=== PATIENT | female | born 1980 ===

== ENCOUNTER 2017-04-05 07:10 | Day surgery (SDC) | payer OTHER ==
[2017-04-05 07:52] VITALS: BMI 20.1
[2017-04-05] MEDS ORDERED: Lactated Ringer's 500 ML IV ONE (08:00)
[2017-04-05] MEDS ORDERED: Propofol 10 mg/ml Inj (20 ML) ONE (08:45)
[2017-04-05 09:16] VITALS: TEMP 97
[2017-04-05 09:53] VITALS: BP 110/70; PULSE 60; RESP 14; O2SAT 100
== END 2017-04-05 09:51 | disposition home or self-care (01) ==
LOC: H.ENDO 07:10
PROVIDERS: ATTEND Internal Medicine Gastroenterology
DX: R19.7 Diarrhea, unspecified (principal); K52.9 Noninfective gastroenteritis and colitis, unspecified; K64.0 First degree hemorrhoids; K58.9 Irritable bowel syndrome, unspecified
CPT/HCPCS: 45380; 88305; J2704; J7120

== ENCOUNTER 2018-08-14 12:52 | Emergency (ER) | payer OTHER ==
[2018-08-14 12:53] VITALS: BMI 20.1
[2018-08-14 13:04] VITALS: O2SAT 100
[2018-08-14] MEDS ORDERED: Sodium Chloride 0.9% 1,000 ML IV STA (13:05)
[2018-08-14 13:47] LABS: BASO % 0.2 % (0.0-2.0); EOS # 0.1 K/uL (0.0-0.7); EOS % 0.4 % (0.0-4.0); HEMOGLOBIN 13.9 g/dL (12.0-16.0); LYMPH # 0.3 K/uL (1.0-4.3); MEAN CORPUSCULAR HEMOGLOBIN 26.9 pg (27.0-31.0); MEAN CORPUSCULAR HGB CONC 32.8 g/dL (33.0-37.0); MEAN PLATELET VOLUME 7.6 fl (7.2-11.7); MONO # 0.5 K/uL (0.0-0.8); MONO % 3.1 % (0.0-10.0); NEUT # 15.3 K/uL (1.8-7.0); NEUT % 94.3 % (50.0-75.0); PLATELET COUNT 341 K/uL (130-400); RBC 5.19 Mil/uL (3.80-5.20); RED CELL DISTRIBUTION WIDTH 14.5 % (11.5-14.5); WHITE BLOOD COUNT 16.2 K/uL (4.8-10.8)
[2018-08-14 14:01] LABS: ALB/GLOB RATIO 1.1 (1.0-2.1); ALBUMIN 4.6 g/dL (3.5-5.0); ALT/SGPT 25 U/L (9-52); AST/SGOT 28 U/L (14-36); BLOOD UREA NITROGEN 17 mg/dl (7-17); GFR NON-AFRICAN AMERICAN > 60
--- NOTE | 2018-08-14 14:02 | ED PDOC ---
HPI:Nausea, Vomiting, Diarrhea Time Seen by Provider: 08/14/18 13:05 Chief Complaint (Nursing): GI Problem Chief Complaint (Provider): GI Problem History Per: Patient History/Exam Limitations: no limitations Onset/Duration Of Symptoms: Days (x1) Current Symptoms Are (Timing): Still Present Additional Complaint(s): 38 year old female presents to ED with acute onset of nausea, vomiting, diarrhea, and mild upper abdominal discomfort since 0700 earlier today. Patient admits to ingesting raw oysters yesterday but denies any other focal abdominal pain, recent sick contacts, fever, chills, headache, bloody vomitus or stools. Patient has Hx significantly for salmonella 1 month ago and has completed full course of ABX and received typhoid vaccine. 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 PCP: Dr. Marily Jenkins Past Medical History Reviewed: Historical Data, Nursing Documentation, Vital Signs Vital Signs: Last Vital Signs Temp 97 F L 08/14/18 13:02 Pulse 92 H 08/14/18 13:02 Resp 18 08/14/18 13:02 BP 103/72 08/14/18 13:02 Pulse Ox 100 08/14/18 13:02 - Medical History PMH: No Chronic Diseases Denies: Chronic Kidney Disease - Surgical History Surgical History: Denies: No Surg Hx Other surgeries: jaw and hand - Family History Family History: States: Unknown Family Hx - Home Medications Home Medications: Ambulatory Orders Medication Instructions Recorded Levonorgestrel-Ethin Estradiol 1 tab PO DAILY 04/05/17 [Levora-28 30 Mcg-0.15 mg] Ondansetron ODT [Zofran ODT] 4 mg PO Q6 PRN #10 odt 08/14/18 Ranitidine HCl [Zantac] 150 mg PO BID #20 tablet 08/14/18 - Allergies Allergies/Adverse Reactions: Allergies Allergy/AdvReac Type Severity Reaction Status Date / Time No Known Allergies Allergy Verified 04/05/17 07:52 Review of Systems ROS Statement: Except As Marked, All Systems Reviewed And Found Negative Constitutional: Negative for: Fever, Chills Gastrointestinal: Positive for: Nausea, Vomiting, Abdominal Pain (epigastric d iscomfort), Diarrhea. Negative for: Hematochezia, Hematemesis Neurological: Negative for: Headache Physical Exam - Reviewed Nursing Documentation Reviewed: Yes Vital Signs Reviewed: Yes - Physical Exam Appears: Positive for: No Acute Distress Head Exam: Positive for: ATRAUMATIC, NORMAL INSPECTION, NORMOCEPHALIC Skin: Positive for: Normal Color Eye Exam: Positive for: Normal appearance, EOMI, PERRL. Negative for: Scleral icterus ENT: Positive for: Normal ENT Inspection. Negative for: Pharyngeal Erythema Neck: Positive for: Normal Cardiovascular/Chest: Positive for: Regular Rate, Rhythm, Chest Non Tender Respiratory: Positive for: Normal Breath Sounds. Negative for: Respiratory Distress Gastrointestinal/Abdominal: Positive for: Normal Exam, Soft. Negative for: Tenderness (LLQ or LRQ), Guarding, Rebound Back: Positive for: Normal Inspection. Negative for: L CVA Tenderness, R CVA Tenderness Extremity: Positive for: Normal ROM (upper/lower) Neurologic/Psych: Positive for: Alert, Oriented. Negative for: Motor/Sensory Deficits - Laboratory Results Result Diagrams: 08/14/18 18:13 08/14/18 13:41 Lab Results: Total Bilirubin 1.0 mg/dl (0.2-1.3) 08/14/18 13:41 AST 28 U/L (14-36) 08/14/18 13:41 ALT 25 U/L (9-52) 08/14/18 13:41 Alkaline Phosphatase 55 U/L (38-126) 08/14/18 13:41 Total Protein 8.8 G/DL (6.3-8.2) H 08/14/18 13:41 Albumin 4.6 g/dL (3.5-5.0) 08/14/18 13:41 Globulin 4.2 gm/dL (2.2-3.9) H 08/14/18 13:41 Albumin/Globulin Ratio 1.1 (1.0-2.1) 08/14/18 13:41 - ECG O2 Sat by Pulse Oximetry: 100 (RA) Pulse Ox Interpretation: Normal Medical Decision Making Medical Decision Making: Time: 1305 Initial Plan: * Labs with UA * IV fluids * Pepcid 20mg IV * Zofran 4mg IV * Re-eval after bloodwork results labs reviewed reveal elevated WBC and normal LFTs, hgb. UA reveals ketones c/w dehydration. chem reveals Co2 18 c/w dehydration. Pt observed for several hours with serial abdominal exams, showing gradual improvement, continues to deny any lower abd pain. Notes epigastric burning only. 630p re-eval abdomen nontender including RLQ. Has not received pain medicine. repeat CBC leukocytosis resolving. Impressions discussed w patient, remains mildly nauseous but overall improved. Additional antiemetic given and Rx for antiemetic and zantac eRx to [facility]. Discussed imaging earlier and patient prefers to see if pain returns. Advised against foreign travel for 48hrs to assure improvement and resolution of symptoms. Scribe Attestation: Documented by Denise Goel, acting as a scribe for Delano Belle III, DO. Provider Scribe Attestation: All medical record entries made by the Scribe were at my direction and personally dictated by me. I have reviewed the chart and agree that the record accurately reflects my personal performance of the history, physical exam, medical decision making, and the department course for this patient. I have also personally directed, reviewed, and agree with the discharge instructions and disposition. Disposition - Clinical Impression Clinical Impression: Gastroenteritis, Dehydration - Patient ED Disposition Is Patient to be Admitted: No Counseled Patient/Family Regarding: Studies Performed, Diagnosis, Need For Followup - Disposition Disposition: Routine/Home Disposition Time: 19:00 Condition: STABLE Prescriptions: Ondansetron ODT [Zofran ODT] 4 mg PO Q6 PRN #10 odt PRN Reason: Nausea/Vomiting Ranitidine HCl [Zantac] 150 mg PO BID #20 tablet Instructions: Dehydration, Adult (DC), Gastroenteritis (ED) Forms: [employer] (Malay)
[2018-08-14] MEDS: Lactated Ringer's 1,000 ML IV SCH ×5 (14:27→19:05)
[2018-08-14 14:37] LABS: BANDS 2 % (0-2); BASOPHIL 1 % (0-2); EOSINOPHIL 1 % (0-7); LYMPHOCYTE 3 % (20-50); MONOCYTE 6 % (0-10); NEUTROPHIL 87 % (42-75); PLATELET ESTIMATE NORMAL (NORMAL); TOTAL CELLS COUNTED 100
[2018-08-14 15:31] LABS: SQUAMOUS EPITHIAL 2 /hpf (0-5); URINE BACTERIA RARE (<OCC); URINE BILIRUBIN NEGATIVE (NEGATIVE); URINE BLOOD NEGATIVE (NEGATIVE); URINE CLARITY SLIGHTY-CLOUDY (Clear); URINE GLUCOSE (UA) NEG (NEGATIVE); URINE LEUKOCYTE ESTERASE NEG Leu/uL (Negative); URINE PROTEIN 30 mg/dL (NEGATIVE); URINE UROBILINOGEN 0.2-1.0 mg/dL (0.2-1.0)
[2018-08-14 15:33] LABS: URINE COLOR YELLOW (YELLOW)
[2018-08-14 18:18] LABS: HEMOGLOBIN 12.8 g/dL (12.0-16.0); MEAN CORPUSCULAR HEMOGLOBIN 26.4 pg (27.0-31.0); MEAN CORPUSCULAR HGB CONC 32.2 g/dL (33.0-37.0); RBC 4.86 Mil/uL (3.80-5.20); RED CELL DISTRIBUTION WIDTH 14.4 % (11.5-14.5); WHITE BLOOD COUNT 11.5 K/uL (4.8-10.8)
[2018-08-14] MEDS ORDERED: Lactated Ringer's 1,000 ML IV SCH (18:45)
[2018-08-14 20:42] VITALS: BP 100/53; PULSE 82; RESP 16; TEMP 97.9
== END 2018-08-14 20:32 | disposition home or self-care (01) ==
LOC: H.ER 12:52
DX: K52.9 Noninfective gastroenteritis and colitis, unspecified (principal); E86.0 Dehydration; Z79.899 Other long term (current) drug therapy
CPT/HCPCS: 80053; 81003; 84703; 85025; 85027; 96361; 96374; 96375; 96376; 99285; J2405; J2765; J7030; J7120